=== PATIENT | female | born 1970 | race Caucasian/White ===

== ENCOUNTER → 2023-07-26 13:51 | Outpatient (REF) | payer OTHER, SELFPAY | LOC: WDC 13:51 | PROVIDERS: ATTENDING PHYSICIAN Obstetrics & Gynecology Gynecology; FAMILY PHYSICIAN Physician Assistant Medical | DX: Z12.31 Encounter for screening mammogram for malignant neoplasm of breast (principal) | CPT/HCPCS: 77063; 77067 ==

== ENCOUNTER 2023-10-19 11:39 | Emergency (ER) | payer OTHER, SELFPAY ==
[2023-10-19 12:03] VITALS: BP 148/89
--- NOTE | 2023-10-19 12:08 | ED.PDOC.TRB ---
ED Provider Triage
-
Patient seen by provider in Triage?: Seen in Triage
Patient with diffuse paresthesia in all 4 extremities x 1 month. Had appointment with PCP but had to cancel visit and unable to be rescheduled until end of month. Unchanged today but PCP unable to see today so advised coming to ED. Patient is stable
and in NAD. stable for WR
[2023-10-19 12:33] LABS: % Eosinophils 2.6 % (0-6); % Immature Granulocytes 0.2 % (0-0.5); % Lymphocytes 30.5 % (20.5-51.1); % Monocytes 7.3 % (1.7-9.3); % Neutrophils 58.4 % (42.2-75.2); Absolute Basophils 0.1 10^3/uL (0-0.2); Absolute Eosinophils 0.2 10^3/uL (0-0.7); Absolute Lymphocytes 1.9 10^3/uL (1.2-3.4); Absolute Monocytes 0.5 10^3/uL (0.1-0.6); Absolute Neutrophils 3.7 10^3/uL (1.4-6.5); Hematocrit 40.2 % (37.0-47.0); Hemoglobin 13.3 g/dL (12.0-16.0); Mean Corp Hgb Conc. 33.1 g/dL (33.0-37.0); Mean Corpuscular Hgb 30.3 pg (27.0-31.0); Mean Corpuscular Volume 91.6 fL (81.0-99.0); Mean Platelet Volume 9.4 fL (7.4-10.4); Nucleated Red Blood Cells % 0 %; Platelet Count 236 10^3/uL (130-400); Red Blood Cell Count 4.39 10^6/uL (4.20-5.40); Red Cell Dist. Width 12.2 % (11.5-14.5); White Blood Cell Count 6.3 10^3/uL (4.8-10.8)
[2023-10-19 12:45] LABS: ALT (SGPT) 26 U/L (0-35); AST (SGOT) 25 U/L (14-36); Albumin 4.3 g/dl (3.5-5.0); Alkaline Phosphatase 64 U/L (38-126); Blood Urea Nitrogen 17 mg/dl (7-17); Calcium 9.5 mg/dl (8.4-10.2); Carbon Dioxide 28 mmol/L (22-30); Chloride 105 mmol/L (98-107); Glucose 107 mg/dl (70-99); Potassium 4.2 mmol/L (3.5-5.1); Sodium 140 mmol/L (135-145); Total Protein 6.7 g/dl (6.3-8.2); eGFR > 60.00
[2023-10-19 13:15] LABS: TSH Reflex To Free T4 2.11 uIU/ml (0.47-4.68)
--- NOTE | 2023-10-19 13:29 | ED.GENMED ---
History of Present Illness
General
Chief Complaint: Numbness
Time Seen by Provider: 10/19/23 13:08
Travel History
Have you had any contact with someone who has COVID-19?: No
Do you have any symptoms of coronavirus? Fever > 100 degrees, chills, cough, shortness of breath, sore throat, loss of taste or smell, muscle aches, or headache?: No
History of Present Illness
History of Present Illness:
52-year-old female with history of fibromyalgia presents to the emergency department for evaluation of diffuse paresthesias involving the extremities and ears bilaterally ongoing for the past month. She notes in the past 2 days she has developed
dizziness and a mild headache. Denies any blurry or double vision. Denies any night sweats, weight loss, extremity weakness, difficulty ambulating, chest pain, or shortness of breath. Denies any vaccinations in the 4 to 6 weeks prior to onset of
symptoms. Denies any recent international travel.
Review of Systems
Review of Systems
Allergies reviewed?: Yes
All Other Systems: ROS reviewed and negative except as documented in HPI and ROS
Phy Exam
Physical Exam
Physical Exam:
GEN: Well appearing, NAD, WDWN
HEENT: Oral mucosa moist, no scleral icterus, no nasal congestion
Cardiac: Regular rateAnd rhythm, no murmurs
Lung: No respiratory distress, no tachypnea
MSK: No gross deformity or injuries
Skin: Good color, no pallor or jaundice, no rashes
Neuro: AO x3; CN II-XII grossly intact. BUE strength 5/5 in all oakes, sensation intact and symmetric. BLE strength 5/5 in all oakes, sensation intact and symmetric, Tricep, brachioradialis and patellar reflexes 2+ and symmetric bilaterally with
no clonus
Psych: Calm, cooperative
Course
Orders/Labs/Results
Orders:
Orders
10/19/23 12:06
Electrocardiogram (*1) Urgent
Reason for Study: Vertigo / Dizzy
EKG- Treatment ONCE
10/19/23 12:24
Complete Blood Count/With Diff Urgent
Comprehensive Metabolic Panel Urgent
Folate Urgent
Comment: B12 & FOLATE ADDED ON BY FLOOR 2PM 10-19-23
Lyme Progressive Urgent
Magnesium Urgent
TSH Reflex To Free T4 Urgent
Vitamin B12 Urgent
10/19/23 13:27
CT Head W/o Iv Contrast Urgent
Comment:
Reason For Exam: dizziness/headache/numbness
10/19/23 13:59
Add On- LAB Urgent
Tests Added?: b12, folate
Abnormal Lab Results
10/19/23
12:24
Glucose 107 H mg/dl
(70-99)
10/19/23 12:24
10/19/23 12:24
Vital Signs
Initial and Last Documented VS:
Initial Vital Signs
Temp Pulse Resp BP Pulse Ox
98.0 F 71 16 148/89 98
10/19/23 12:03 10/19/23 12:03 10/19/23 12:03 10/19/23 12:03 10/19/23 12:03
Last Documented Vital Signs
Temp Pulse Resp BP Pulse Ox
98.0 F 71 16 148/89 98
10/19/23 12:03 10/19/23 12:03 10/19/23 12:03 10/19/23 12:03 10/19/23 12:03
MDM/Problems Addressed
MDM/Problems Addressed:
She has no objective neurologic symptoms on exam. Do not suspect transverse myelitis or Guillain-Melara� given lack of associated muscular weakness or true skin sensation abnormality. Reflexes are normal. Lyme, B12, and folate levels pending at
time of discharge. Recommend primary care follow-up and potentially neurology follow-up as well to discuss potential benefit of further EMG with these are not warranted at the present moment
*Critical Care Note
Total Time (30-74mins, 75-104mins- exclusive of procedures): Not Applicable
ED Attending Note
-
Portions of this chart may have been created with voice recognition software.� Occasional wrong word or��sound alike� substitutions may have occurred due to the inherent limitations of voice recognition software.
Discharge Plan
Departure
Patient Disposition: Home (Routine Discharge)
Date of Disposition: 10/19/23
Time of Disposition: 13:59
Patient with high blood pressure during this ER visit?: No
Discharge Problem:
Paresthesia
Instructions: Paresthesia (DC)
Prescriptions:
No Action
cetirizine 10 MG tablet
10 mg PO DAILY PRN (Reason: ALLERGIES)
simvastatin 20 MG tablet
20 mg PO HS
fluticasone propionate 1 SPRAY spray,suspension
2 spray intranasal PRN PRN (Reason: ALLERGIES)
cholecalciferol (vitamin D3) [Vitamin D3] 1,000 UNIT capsule
5,000 unit PO DAILY
duloxetine 60 MG capsule,delayed release(DR/EC)
60 mg PO HS
Iron
28 mg PO DAILY
hydrocodone-acetaminophen 1 TABLET tablet
1 - 2 tab PO Q4HPRN PRN (Reason: moderate to severe pain) Qty: 20 0RF
Referrals:
Slime Gaona PA-C [Family Provider] -
Activity Restrictions/Additional Instructions:
The cause of your symptoms is not clear at this time. Your labs and imaging in the emergency department was reassuring however Lyme testing as well as B12 and folate levels were up by your primary care physician. It is also possible you may need
further diagnostics such as an MRI of the brain and/or spine as well as an EMG to determine if this is a true nerve problem.
Interventions
Interventions:
*ED COVID-19 Vaccine History Last Done: 10/19/23 12:03
Discharge Date and Time
Print Language: SRI LANKAN
[2023-10-19 16:20] LABS: Folate 7.8 ng/ml (2.76-20); Vitamin B12 270 pg/ml (239-931)
[2023-10-23 14:33] LABS: Lyme Antibody Screen, EIA Negative (Negative)
== END 2023-10-19 14:24 | disposition home or self-care (01) ==
LOC: EMR 11:39
PROVIDERS: Physician Assistant Medical; EMERGENCY PHYSICIAN Student in an Organized Health Care Education/Training Program; FAMILY PHYSICIAN Physician Assistant Medical
DX: R20.2 Paresthesia of skin (principal); M79.7 Fibromyalgia
CPT/HCPCS: 99284; 70450; 80053; 82607; 82746; 83735; 84443; 85025; 86618; 93005

== ENCOUNTER → 2023-11-22 15:21 | Outpatient (REF) | payer OTHER, SELFPAY | LOC: MRI 3T 15:21 | PROVIDERS: ATTENDING PHYSICIAN Physician Assistant Medical | DX: R20.2 Paresthesia of skin (principal); R51.9 Headache, unspecified; M79.7 Fibromyalgia | CPT/HCPCS: 70553; A9575 ==

== ENCOUNTER → 2024-01-26 11:40 | Outpatient (REF) | payer OTHER, SELFPAY | LOC: PAVMRI 11:40 | PROVIDERS: ATTENDING PHYSICIAN Neurological Surgery; FAMILY PHYSICIAN Physician Assistant Medical | DX: G93.5 Compression of brain (principal) | CPT/HCPCS: 70551 ==

== ENCOUNTER → 2024-01-29 07:16 | Outpatient (REF) | payer OTHER, SELFPAY | LOC: MRI 07:16 | PROVIDERS: ATTENDING PHYSICIAN Neurological Surgery; FAMILY PHYSICIAN Physician Assistant Medical | DX: G93.5 Compression of brain (principal) | CPT/HCPCS: 72141 ==

== ENCOUNTER → 2024-11-27 08:29 | Outpatient (REF) | payer OTHER, SELFPAY | LOC: RAD 08:29 | PROVIDERS: ATTENDING PHYSICIAN Internal Medicine Cardiovascular Disease; FAMILY PHYSICIAN Physician Assistant Medical | DX: H93.13 Tinnitus, bilateral (principal) | CPT/HCPCS: 93880 ==

== ENCOUNTER → 2024-12-13 12:00 | Outpatient (REF) | payer SELFPAY | LOC: DHSLP 12:00 | PROVIDERS: ATTENDING PHYSICIAN Internal Medicine Critical Care Medicine; FAMILY PHYSICIAN Physician Assistant Medical | DX: G47.33 Obstructive sleep apnea (adult) (pediatric) (principal) | CPT/HCPCS: 95800 ==

== ENCOUNTER 2025-02-17 07:45 | Day surgery (SDC) | payer BC, SELFPAY | END 2025-02-17 15:55 | disposition home or self-care (01) | LOC: GI 07:45 | PROVIDERS: ATTENDING PHYSICIAN Internal Medicine Gastroenterology | DX: Z12.11 Encounter for screening for malignant neoplasm of colon (principal); B07.9 Viral wart, unspecified; D12.3 Benign neoplasm of transverse colon; A63.0 Anogenital (venereal) warts; Z86.0100 Personal history of colon polyps, unspecified | CPT/HCPCS: 45385; 88305; 88341; 88342 ==

== ENCOUNTER → 2025-05-14 12:31 | Outpatient (REF) | payer BC, SELFPAY | LOC: WDC 12:31 | PROVIDERS: ATTENDING PHYSICIAN Obstetrics & Gynecology Gynecology; FAMILY PHYSICIAN Physician Assistant Medical | DX: Z12.31 Encounter for screening mammogram for malignant neoplasm of breast (principal) | CPT/HCPCS: 77063; 77067 ==